=== PATIENT | female | born 1945 | race Hispanic/Latino ===

== ENCOUNTER → 2017-05-19 | Day surgery (SDC) | payer MEDICARE, OTHER ==
[2017-05-18 15:25] LABS: BASOPHILS # (AUTO) 0.1 (0.0-0.1); BASOPHILS % 0.7 % (0.0-1.0); EOSINOPHILS # (AUTO) 0.3 (0.0-0.4); EOSINOPHILS % 3.1 % (0.0-6.0); HEMATOCRIT 37.5 % (34.2-44.1); HEMOGLOBIN 12.5 g/dL (12.0-16.0); LYMPHOCYTES # (AUTO) 2.2 (1.0-3.2); LYMPHOCYTES % 26.1 % (18.0-39.1); MEAN CORPUSCULAR HEMOGLOBIN 32.9 pg (28-32); MEAN CORPUSCULAR HGB CONC 33.3 g/dL (31-35); MEAN CORPUSCULAR VOLUME 98.7 fL (81-99); MONOCYTES # (AUTO) 0.5 (0.2-0.8); MONOCYTES % 6.1 % (4.4-11.3); NEUTROPHILS # (AUTO) 5.3 (2.1-6.9); NEUTROPHILS % 63.5 % (38.7-80.0); PLATELET COUNT 217 x10e3/uL (140-360); RED CELL DISTRIBUTION WIDTH 13.8 % (11.7-14.4)
--- NOTE | 2017-05-18 15:55 | Diagnostic Imaging Report ---
PROCEDURE: Frontal and lateral views of the chest. COMPARISON: None. INDICATIONS: PRE OP FINDINGS: Lines/tubes: None. Lungs: The lungs are well inflated and clear. There is no evidence of pneumonia or pulmonary edema. Pleura: There is no pleural effusion or pneumothorax. Heart and mediastinum: The heart and the mediastinum are normal. Bones: No acute bony abnormality. Degenerative changes in the thoracic spine. IMPRESSION: 1. No acute cardiopulmonary abnormalities. Wilver Fernando M.D. Dictated by: Wilver Fernando M.D. on 05/18/2017 at 16:02 Electronically approved by: Wilver Fernando M.D. on 05/18/2017 at 16:02
[~2017-05-19] MED LIST: ATORVASTATIN CA20 MG PO; BACITRACIN 50,000 UNIT VIAL ONE; BUPIVACAINE 0.5%/EPI 30 ML SDV INJ ONE; CALCIUM CARBON500 MG PO; CEFAZOLIN SOD 1 GM VIAL ONE; CLINDAMYCIN 300MG 50 ML IV ONE; DOCUSATE SODIU100 MG PO; FENTANYL CITRATE/PF 100MCG/2 ML INJ ONE; FISH OIL 1,2001 EACH PO; FLUOXETINE HCL20 MG PO; KETOROLAC TROMETHAMINE 30 MG/ML VIAL ONE; LEVOTHYROXINE100 MC1 PO; LIDOCAINE 2% /EPINEPHRINE 20 ML SDV INJ ONE; LIDOCAINE HCL 2% LOCAL INJ 5 ML SDV VIAL INJ ONE; LISINOPRIL10 MG PO; MIDAZOLAM HCL 2 MG/2 ML VIAL ONE; MYRBETRIQ50 MG PO; NORCO 10-325 T1 EACH PO; PROPOFOL IV EMULSION 10 MG/ML 20 ML VIAL ONE; RISPERIDONE1 MG PO; VITAMIN B-121000 MCG PO; VITAMIN D-32000 UNIT PO
--- NOTE | 2017-07-11 07:54 | Operative Report ---
DATE OF PROCEDURE: May 19, 2017 PREOPERATIVE DIAGNOSES 1. Refractory urge incontinence. 2. Migration of InterStim lead. POSTOPERATIVE DIAGNOSES 1. Refractory urge incontinence. 2. Migration of InterStim lead. OPERATIONS PERFORMED 1. Removal of InterStim lead electrode array from the right foramen S3. 2. Placement of tined quadripolar lead electrodes into the left foramen S3. 3. Revision of right-sided InterStim neurostimulator. 4. Fluoroscopic guidance for needle placement into the foramen S3. 5. Electronic analysis and complex programming. ANESTHESIA: Local anesthesia with intravenous anesthesia and monitored anesthesia care. COMPLICATIONS: None. CLINICAL SUMMARY: Jacqueline Smith is a 71-year-old woman who had an InterStim implant placed for refractory urge incontinence. Initially, the patient did well. The patient however had change in symptomatology and some discomfort from the InterStim and improper sensation. Evaluation revealed that the patient's lead had migrated proximally and was no longer in proper position through the S3 foramen. Patient was brought for revision. She is aware of the risks of bleeding, infection, injury to adjacent structures, need for additional procedures, and elected to proceed. OPERATIVE PROCEDURE IN DETAIL: Informed consent was verified. Jacqueline Smith was properly identified, taken to the operating room, placed on the pain management table in the prone position following uneventful anesthesia. Pillows were placed on the lower abdomen to flatten the sacrum and under the shins to allow the toes to dangle freely. The patient was prepared and draped in usual sterile fashion. C-arm was utilized. Local injection of Marcaine as well as lidocaine with epinephrine was utilized throughout the procedure. An incision was made overlying the right lead. We dissected out the lead. We then carefully and gently removed the right lead from its improper position. The needle was then placed into the left foramen S3 and guided fluoroscopically. The depth was confirmed fluoroscopically and proper needle position was also confirmed with bellowing of the patient's perineum and plantar flexion of the great toe, utilizing the external test stimulator box. The needle stylet was then removed. The directional guidewire was then placed. The foramen needle was then removed and an incision made peripherally to the directional guide. A dilator introducer sheath was then placed over the directional guide and directed into the foramen until the opaque marker of the dilator was seen at the midpoint of the sacrum. The dilator obturator was then unlocked and removed and the lead was then placed through the introducer sheath to the 1st white line. Position was checked fluoroscopically. All 4 leads were then tested. Each electrode was then tested for its similar response to above. After satisfactory position was confirmed under continuous fluoroscopy, the introducer sheath was retracted, thus deploying the lead tines into the perisacral tissue and ensuring that all 4 leads were anterior to the sacrum. We then made further incision overlying the neurostimulator. We then explanted the neurostimulator and disconnected the old lead from the neurostimulator. The pocket was then revised. We used the tunneling tube to bring the new lead to the same pocket. We cleansed the lead thoroughly of bodily fluids with sterile water and dried it thoroughly. We then inserted it into the same pulse generator with the blue lead tip clearly visible in the distal portion of the pulse generator header and thus ensuring alignment of the metal bands. The single set screw was then tightened with a hex wrench. The pulse generator was then placed into the subcutaneous pocket that was revised and the programming head was then placed over the implanted neurostimulator. Impedance was verified to be in appropriate parameters. Copious irrigation was performed of all incisions and all incisions were closed in 2 layers utilizing absorbable sutures. Mastisol and Steri-Strips were applied. Bio-occlusive dressings were also applied. The patient was then uneventfully reversed from anesthesia and taken to recovery room in stable condition. There were no complications to the procedure. The patient tolerated the procedure well. Sponge, needle, and instrument counts were grossly correct times 2 at the end of the case. Estimated blood loss was minimal. Utilizing the clinician program, the patient was programmed to the lead of optimum sensation and given explicit instructions on utilizing the patient computer numerical control programmer prior to discharge. Plans will be to follow the patient up as an outpatient and continue to monitor the patient closely with impedance checks and reprogramming of her implant as needed. Job#: [id number] CF cc:DANNI KIMBLE M.D.
== END | disposition home or self-care (01) ==
LOC: OR 06:39
PROVIDERS: ATTEND Urology
DX: T85.121A Displacement of implanted electronic neurostimulator of peripheral nerve electrode (lead), initial encounter (principal); Y83.8 Other surgical procedures as the cause of abnormal reaction of the patient, or of later complication, without mention of misadventure at the time of the procedure; N39.41 Urge incontinence; M06.9 Rheumatoid arthritis, unspecified; M19.90 Unspecified osteoarthritis, unspecified site; E03.9 Hypothyroidism, unspecified; J45.909 Unspecified asthma, uncomplicated; I10 Essential (primary) hypertension; E78.5 Hyperlipidemia, unspecified; Z01.810 Encounter for preprocedural cardiovascular examination; Z01.812 Encounter for preprocedural laboratory examination; Z01.818 Encounter for other preprocedural examination
CPT/HCPCS: 64581; 64595; 95972; C1778; L8679; 36415; 71020; 76000; 85025; 88300; 93005; J0690; J1885; J2001; J2250

== ENCOUNTER 2017-10-30 10:58 | Inpatient (IN) | payer MEDICARE ==
[2017-10-24 10:53] LABS: BASOPHILS # (AUTO) 0.1 (0.0-0.1); BASOPHILS % 0.8 % (0.0-1.0); EOSINOPHILS # (AUTO) 0.1 (0.0-0.4); EOSINOPHILS % 1.9 % (0.0-6.0); HEMATOCRIT 36.4 % (34.2-44.1); LYMPHOCYTES # (AUTO) 1.7 (1.0-3.2); LYMPHOCYTES % 26.8 % (18.0-39.1); MEAN CORPUSCULAR HEMOGLOBIN 32.2 pg (28-32); MEAN CORPUSCULAR VOLUME 97.6 fL (81-99); MONOCYTES # (AUTO) 0.5 (0.2-0.8); MONOCYTES % 7.2 % (4.4-11.3); NEUTROPHILS # (AUTO) 3.9 (2.1-6.9); NEUTROPHILS % 62.8 % (38.7-80.0); PLATELET COUNT 198 x10e3/uL (140-360); RED BLOOD COUNT 3.73 x10e6/uL (3.6-5.1); RED CELL DISTRIBUTION WIDTH 14.6 % (11.7-14.4)
--- NOTE | 2017-10-24 12:52 | Diagnostic Imaging Report ---
PROCEDURE: X-RAY CHEST, TWO VIEWS COMPARISON: Patients [facility], , CHEST 2 VIEWS, 05/18/2017, 15:19. INDICATIONS: PRE-OPERATION FINDINGS: LUNGS: No consolidations or edema. PLEURA: No effusions or pneumothorax. HEART \T\ MEDIASTINUM: The heart is within normal size-limits. Calcification within the aorta. BONES \T\ SOFT TISSUES: No acute findings. There are degenerative changes of the thoracic spine. CONCLUSION: No acute thoracic abnormality. Carroll Galdamez D.O. Dictated by: Carroll Galdamez D.O. on 10/24/2017 at 12:53 Electronically approved by: Carroll Galdamez D.O. on 10/24/2017 at 12:53
[~2017-10-30 10:58] MED LIST changes: -BACITRACIN 50,000 UNIT VIAL ONE; -BUPIVACAINE 0.5%/EPI 30 ML SDV INJ ONE; -CLINDAMYCIN 300MG 50 ML IV ONE; -FENTANYL CITRATE/PF 100MCG/2 ML INJ ONE; -KETOROLAC TROMETHAMINE 30 MG/ML VIAL ONE; -LIDOCAINE 2% /EPINEPHRINE 20 ML SDV INJ ONE; -LIDOCAINE HCL 2% LOCAL INJ 5 ML SDV VIAL INJ ONE; -MIDAZOLAM HCL 2 MG/2 ML VIAL ONE; -PROPOFOL IV EMULSION 10 MG/ML 20 ML VIAL ONE
--- OUTSIDE RECORDS SUMMARY | 2017-10-30 11:00 | XMS REPORT ---
Author Author [facility] Address Unknown Phone Unavailable Care Team Providers Care Hardware Manager Name Role Phone NAVNEET VILLEDA Unavailable Unavailable Problems This patient has no known problems. Allergies, Adverse Reactions, Alerts This patient has no known allergies or adverse reactions. Medications This patient has no known medications. Results Test Description Test Time Test Comments Text Results Atomic Results Result Comments CHEST 2 VIEWS [place] [address] Patient Name: ELICEO CARRENO MR #: [id number] : 1945 Age/Sex: 72/F Req #: [id number] Adm Physician: Ordered by: JENA MARIN MD Report #: [id number] Location: OR Room/Bed: Procedure: [id number] DX/CHEST 2 VIEWS Exam Date: 10/24/17 Exam Time: 1122 REPORT STATUS: Signed PROCEDURE: X-RAY CHEST, TWO VIEWS COMPARISON: [facility], DX, CHEST 2 VIEWS, 05/18/2017, 15:19. INDICATIONS: PRE-OPERATION FINDINGS: LUNGS: No consolidations or edema. PLEURA: No effusions or pneumothorax. HEART T MEDIASTINUM: The heart is within normal size-limits. Calcification within the aorta. BONES T SOFT TISSUES: No acute findings. There are degenerative changes of the thoracic spine. CONCLUSION: No acute thoracic abnormality. Ghassan Galdamez D.O. Dictated by: Ghassan Galdamez D.O. on 10/24/2017 at 12:53 Electronically approved by: Ghassan Galdamez D.O. on 10/24/2017 at 12:53 Dictated By: GHASSAN GALDAMEZ DO 1253 Transcribed By: JUDE on 10/24/17 1253 COPY TO: JENA MARIN MD CHEST 2 VIEWS [place] [address] Patient Name: ELICEO CARRENO MR #: [id number] : 1945 Age/Sex: 71/F Req #: [id number] Adm Physician: Ordered by: SAIRA GOLDBERG MD Report #: [id number] Location: OR Room/Bed: Procedure: [id number] DX/CHEST 2 VIEWS Exam Date: 05/18/17 Exam Time: 1535 REPORT STATUS: Signed PROCEDURE: Frontal and lateral views of the chest. COMPARISON: None. INDICATIONS: PRE OP FINDINGS: Lines/tubes: None. Lungs: The lungs are well inflated and clear. There is no evidence of pneumonia or pulmonary edema. Pleura: There is no pleural effusion or pneumothorax. Heart and mediastinum: The heart and the mediastinum are normal. Bones: No acute bony abnormality. Degenerative changes in the thoracic spine. IMPRESSION: 1. No acute cardiopulmonary abnormalities. Raymundo Fernando M.D. Dictated by: Raymundo Fernando M.D. on 05/18/2017 at 16:02 Electronically approved by: Raymundo Fernando M.D. on 05/18/2017 at 16:02 Dictated By: RAYMUNDO FERNANDO MD 01 Transcribed By: JUDE on 05/18/171601 COPY TO: SAIRA GOLDBERG MD SACRUM X-RAY [place] [address] Patient Name: ELICEO CARRENO MR #: [id number] : 1945 Age/Sex: 71/F Req #: [id number] Adm Physician: Ordered by: NAVNEET VILLEDA MD Report #: [id number] Location: [facility] Room/Bed: Procedure: [id number] DX/SACRUM X-RAY Exam Date: 03/30/17 Exam Time: 1430 REPORT STATUS: Signed PROCEDURE: SACRUM X-RAY INDICATION: Female genital prolapse COMPARISON: None. FINDINGS: The bones are osteopenic. The sacral body is obscured by rectal gas and stool on the frontal radiograph. No displaced fracture or destructive lesion. Degenerative changes of the sacroiliac joints. Sacral stimulator device body lies within the subcutaneous fat of the right gluteal region. Lead projects just posteriorly to the right sacral ala. Multiple pelvic phleboliths. Tubal ligation devices. CONCLUSION: No acute osseous abnormality. Dictated by: Geo Smith M.D. on 03/31/2017 at 7:40 Electronically approved by: Geo Smith M.D. on 03/31/2017 at 7:40 Dictated By: GEO SMITH MD 9 Transcribed By: JUDE on 03/31/17739 COPY TO: NAVNEET VILLEDA MD
[2017-10-30] MEDS ORDERED: BACITRACIN 50,000 UNIT VIAL ONE (12:33)
[2017-10-30] MEDS ORDERED: BUPIVACAINE HCL 0.5% INJ 30 ML VIAL INJ ONE (12:33)
[2017-10-30] MEDS ORDERED: IOPAMIDOL 610MG/1ML 300 MG/ML VIAL IV ONE (12:52)
[2017-10-30] MEDS ORDERED: D5.45%NS/KCL 20MEQ 1,000 ML IV SCH (15:39)
[2017-10-30] MEDS ORDERED: NALOXONE HCL INJ 0.4 MG/ML AMP IV PRN (15:45)
[2017-10-30] MEDS ORDERED: MORPHINE SULFATE 1 MG/ML 30ML PCA IV PRN (15:45)
[2017-10-30] MEDS ORDERED: ONDANSETRON HCL INJ 2 MG/ML VIAL IV PRN (15:45)
[2017-10-30] MEDS: SODIUM CHLORIDE 0.9% 250ML IRRIG IR SCH ×3 (15:45→21:23)
[2017-10-30] MEDS ORDERED: ACETAMINOPHEN 1000 MG/100 ML IV PRN (15:45)
[2017-10-30] MEDS ORDERED: DIPHENHYDRAMINE HCL INJ 50 MG/ML VIAL IM PRN (15:45)
--- NOTE | 2017-10-30 16:17 | Diagnostic Imaging Report ---
PROCEDURE:X-RAY ABDOMEN - KUB COMPARISON:None. INDICATIONS:NG TUBE PLACEMENT FINDINGS: 2 KUBs were obtained following insertion of an NG tube. NG tube is present, with distal tip at the esophagogastric junction (second film following advancement). Recommend advancing additional 3-5 cm. There are no dilated loops of bowel to suggest obstruction. There are no masses or abnormal calcifications. There is no evidence of free air. No acute osseous abnormalities are present. Neurostimulator/Interstim projected on the left hemipelvis. CONCLUSION: NG tube with distal tip at the esophagogastric junction (second film following advancement). Recommend advancing additional 3-5 cm. Alicja Maza M.D. Dictated by: Alicja Maza M.D. on 10/30/2017 at 16:19 Electronically approved by: Alicja Maza M.D. on 10/30/2017 at 16:19
[2017-10-30] MEDS ORDERED: FENTANYL CITRATE/PF 100MCG/2 ML INJ ONE ×2 (16:25→17:48)
[2017-10-30] MEDS ORDERED: MORPHINE SULFATE 1 MG/ML 30ML PCA ONE (16:33)
[2017-10-30] MEDS ORDERED: MORPHINE SULFATE 2 MG/ML SYR ONE (16:42)
[2017-10-30] MEDS: DOCUSATE SODIUM 100 MG CAP PO SCH (17:00)
[2017-10-30] MEDS ORDERED: DEXAMETHASONE SOD PHOS INJ 4 MG/ML VIAL ONE (17:32)
[2017-10-30] MEDS ORDERED: PROPOFOL IV EMULSION 10 MG/ML 20 ML VIAL ONE (17:32)
[2017-10-30] MEDS ORDERED: ONDANSETRON HCL INJ 2 MG/ML VIAL ONE (17:32)
[2017-10-30] MEDS ORDERED: NEOSTIGMINE 5 MG/5ML SYR ONE (17:32)
[2017-10-30] MEDS ORDERED: LIDOCAINE HCL 2% LOCAL INJ 5 ML SDV VIAL INJ ONE (17:32)
[2017-10-30] MEDS ORDERED: SEVOFLURANE INHAL SOLN 250 ML PEN BTL ONE (17:32)
[2017-10-30] MEDS ORDERED: GLYCOPYRROLATE INJ 1MG/ 5 ML SYR ONE (17:32)
[2017-10-30] MEDS ORDERED: ROCURONIUM BROMIDE 10 MG/ML 5ML VIAL ONE (17:32)
--- NOTE | 2017-10-30 17:38 | Operative Report ---
DATE OF PROCEDURE: October 30, 2017 PREOPERATIVE DIAGNOSIS 1. Severe vaginal vault grade 4 prolapse. 2. Stress-type urinary incontinence. POSTOPERATIVE DIAGNOSIS 1. Severe vaginal vault grade 4 prolapse. 2. Stress-type urinary incontinence. 3. Bilateral hydronephrosis, worse on the right side. OPERATION PERFORMED 1. Cystourethroscopy with bilateral ureteral catheterization and retrograde ureteropyelography (separate procedure performed to evaluate the upper tracts the extent of the hydronephrosis. 2. Interpretation of retrograde ureteropyelography. 3. Supervision of fluoroscopy, no radiologist present. 4. Sacral colpopexy with polypropylene mesh (separate procedure performed for the severe prolapse). 5. Guallpa colposuspension (separate procedure performed for the stress incontinence). PUPPET DEVELOPER: Dr. Komal Tavares. ANESTHESIA: General. COMPLICATIONS: None. CLINICAL SUMMARY: Jacqueline Smith is a 72-year-old woman with both stress and urge-type urinary incontinence. Her urgent-type incontinence has been managed and improved with an InterStim implant. The patient's prolapse is extremely severe, but she does have a stress component to her incontinence. Options were discussed with the patient, and she elected to proceed with surgery today as planned. She understands the risks of bleeding, infection, injury to adjacent structures, possible need for additional reconstruction. She also understands that her case of prolapse is as severe as potentially possible and distortion of anatomy can result in other issues. She understood all these risks and elected to proceed. OPERATIVE PROCEDURE IN DETAIL: Informed consent was verified. Jacqueline Smith was properly identified, taken to the operating room, placed on the operating table in the supine position, and anesthesia was uneventfully begun. The patient was then carefully and gently repositioned in the dorsal lithotomy position with all pressure points well padded. Her abdomen and genitalia were shaved, prepared and draped in the usual sterile fashion. The 22.5-Tongan cystourethroscope sheath with the obturator in place was atraumatically inserted into the patient's urethra, and the bladder was drained. A probe was placed into the vagina and held in place to keep the vaginal vault cephalad in order to be able to negotiate the anatomy of the bladder interior. There were no suspicious lesions. Grade 2 trabeculations were noted. No tumors and no diverticula were noted. Normally positioned and configured ureteral orifices were identified. A hydrophilic angle-tipped guide wire was utilized to help negotiate two 5-Tongan open-ended ureteral catheters into the patient's ureters. Contrast was then injected bilaterally in performing retrograde ureteropyelography. A Bhakta catheter was inserted. The ureteral catheters were incorporated into the drainage system with a specialized adapter, and then the patient was repositioned in a frog-leg position for this the abdominal portion of the case. Interpretation of retrograde ureteropyelography: Contrast was instilled in a retrograde fashion bilaterally. There was severe J-hooking bilaterally. There was bilateral hydroureteronephrosis, worse on the right-hand side. The ureteral catheters were left in a good position. The patient was then reprepared and draped in the usual sterile fashion. A midline infraumbilical incision was then made and carried through all layers of the abdominal wall until we reached the extravesical space. The space of Retzius was developed. We then entered the peritoneum. We utilized a Bae Alfonzo self-retaining retractor. An incision was made at the posterior peritoneum right over the sacral promontory. The sacral promontory was identified, and 2 heavy Ethibond sutures were placed through the periosteum of the sacrum at the level of the sacral promontory. We then utilized a ring forceps in the vagina to identify the apex of the vagina and which we presumed was the vaginal cuff as well. We then isolated the anterior and posterior vaginal wall. We dissected the bladder free from the cephalad portion of the of the anterior vaginal wall. We then utilized 2 strips of polypropylene . One strip was secured with numerous Vicryl sutures to the posterior surface of the cephalad vaginal wall, and the other piece of mesh was secured to the anterior vaginal wall. These pieces of mesh were secured to the vaginal vault with a total of 9 heavy Vicryl sutures. We then secured the other end of both pieces of mesh to the sacral promontory with the previously placed Ethibond sutures. Care was taken to ensure that this mesh was without any tension in order to avoid postoperative discomfort. Thus the sacral colpopexy was utilized to prevent the vagina from prolapsing without actually lifting the vagina. Copious irrigation was performed. We verified hemostasis. The posterior peritoneum was then reapproximated with 3-0 chromic suture, and the mesh was fully retroperitonealized. Attention was then given to the space of Retzius. Utilizing the ring forceps in the vagina as well as through palpation, 4 heavy Vicryl sutures were placed for a Guallpa colposuspension. These sutures were placed lateral to the ureterovesical junction on either side, and then 1 suture was placed distal to the original suture on each side. We approximated these sutures to their respective position on Bronson's ligament. There was bleeding at the level of the space of Retzius from paravaginal veins. This bleeding was oversewn with Vicryl suture with complete hemostasis achieved. The 4 sutures were then tied down, thus completing the Guallpa colposuspension. Copious irrigation was performed. We verified hemostasis. A piece of Surgicel was left in place just for any recurrence of oozing, even though there was no oozing at this point. The wound was again irrigated. The 2 laps that were placed intraperitoneally were removed. We could not easily reach the stomach in order to palpate for NG tube positioning due to the fact that there were adhesions throughout the abdomen and we could not gain easy access to the region of the stomach. The rectus muscles were approximated loosely with interrupted Vicryl suture, and the fascia was approximated with heavy Vicryl suture in interrupted figure-of-8 fashion. Skin bartolome were applied. The ureteral catheters were removed. The dressings were applied. The patient was then uneventfully reversed from anesthesia and taken to the recovery room in stable condition. There were no complications to the procedure. Patient tolerated the procedure well. Sponge, needle and instrument counts were reported as correct x2 at the end of the case. Estimated blood loss was 250 mL. We will plan on routine postoperative care and we will, of course, monitor the patient's laboratory studies during her hospitalization. Job#: [id number] cc:DANNI KIMBLE M.D.
[2017-10-30] MEDS ORDERED: MIDAZOLAM HCL 2 MG/2 ML VIAL ONE (17:48)
[2017-10-30 20:00] VITALS: BP 117/56
[2017-10-30] MEDS ORDERED: CEFAZOLIN SOD 1 GM/NS 50ML 50 ML IV SCH (22:00)
[2017-10-30] MEDS: CEFAZOLIN SOD 1 GM VIAL IV SCH (23:05)
[2017-10-31] VITALS (8 sets, daily range): BP systolic 82–125; BP diastolic 41–58
[2017-10-31] MEDS: SODIUM CHLORIDE 0.9% 250ML IRRIG IR SCH ×5 (00:01→15:45)
[2017-10-31] MEDS: CEFAZOLIN SOD 1 GM VIAL IV SCH ×2 (06:22→14:00)
[2017-10-31 06:41] LABS: BASOPHILS % 0.2 % (0.0-1.0); HEMOGLOBIN 9.1 g/dL (12.0-16.0); LYMPHOCYTES % 8.6 % (18.0-39.1); MEAN CORPUSCULAR HGB CONC 32.5 g/dL (31-35); MEAN CORPUSCULAR VOLUME 98.6 fL (81-99); MONOCYTES # (AUTO) 1.1 (0.2-0.8); MONOCYTES % 9.6 % (4.4-11.3); NEUTROPHILS # (AUTO) 9.4 (2.1-6.9); NEUTROPHILS % 81.1 % (38.7-80.0); PLATELET COUNT 194 x10e3/uL (140-360); RED BLOOD COUNT 2.84 x10e6/uL (3.6-5.1); RED CELL DISTRIBUTION WIDTH 14.5 % (11.7-14.4)
[2017-10-31 07:08] LABS: ANION GAP 10.2 mmol/L (8-16); CALCIUM 8.4 mg/dL (8.4-10.2); CREATININE, SERUM 1.33 mg/dL (0.57-1.11); POTASSIUM 5.2 mmol/L (3.5-5.1)
[2017-10-31] MEDS: DOCUSATE SODIUM 100 MG CAP PO SCH ×2 (09:00→17:00)
[2017-10-31] MEDS: PANTOPRAZOLE 40 MG 10ML VIAL IV SCH (10:30)
[2017-10-31] MEDS: LEVOTHYROXINE SODIUM 100 MCG/VIAL IV SCH (10:30)
[2017-10-31] MEDS: SODIUM CHLORIDE 0.9% 1000ML 1,000 ML IV SCH (17:48)
[2017-11-01 00:31] VITALS: BP 110/55
[2017-11-01] MEDS: CEFAZOLIN SOD 1 GM VIAL IV SCH ×4 (00:47→21:32)
[2017-11-01] MEDS: SODIUM CHLORIDE 0.9% 1000ML 1,000 ML IV SCH ×4 (00:52→21:33)
[2017-11-01 05:00] VITALS: BP 111/52
[2017-11-01 06:42] LABS: BASOPHILS % 0.3 % (0.0-1.0); EOSINOPHILS # (AUTO) 0.1 (0.0-0.4); EOSINOPHILS % 0.9 % (0.0-6.0); HEMATOCRIT 28.4 % (34.2-44.1); HEMOGLOBIN 9.4 g/dL (12.0-16.0); LYMPHOCYTES % 8.7 % (18.0-39.1); MEAN CORPUSCULAR HEMOGLOBIN 33.2 pg (28-32); MEAN CORPUSCULAR HGB CONC 33.1 g/dL (31-35); MEAN CORPUSCULAR VOLUME 100.4 fL (81-99); MONOCYTES # (AUTO) 1.1 (0.2-0.8); MONOCYTES % 9.7 % (4.4-11.3); NEUTROPHILS # (AUTO) 9.3 (2.1-6.9); PLATELET COUNT 146 x10e3/uL (140-360); RED BLOOD COUNT 2.83 x10e6/uL (3.6-5.1)
[2017-11-01 07:05] LABS: ANION GAP 11.3 mmol/L (8-16); BLOOD UREA NITROGEN 16 mg/dL (7-26); BUN/CREATININE RATIO 18 (6-25); CALCIUM 8.4 mg/dL (8.4-10.2); CARBON DIOXIDE 24 mmol/L (22-29); CHLORIDE 106 mmol/L (98-107); CREATININE, SERUM 0.89 mg/dL (0.57-1.11); EST GLOMERULAR FILTRATION RATE > 60 ML/MIN (60-); GLUCOSE 108 mg/dL (74-118); POTASSIUM 4.3 mmol/L (3.5-5.1); SODIUM 137 mmol/L (136-145)
[2017-11-01 08:00] VITALS: BP 108/47
[2017-11-01] MEDS: DOCUSATE SODIUM 100 MG CAP PO SCH ×2 (08:31→17:12)
[2017-11-01] MEDS: PANTOPRAZOLE 40 MG 10ML VIAL IV SCH (08:31)
[2017-11-01] MEDS: LEVOTHYROXINE SODIUM 100 MCG/VIAL IV SCH (08:31)
[2017-11-01] MEDS ORDERED: HYDROCODONE/APAP 10MG-325MG TAB PO PRN (09:45)
[2017-11-01 12:00] VITALS: BP 97/56
[2017-11-01] MEDS ORDERED: ONDANSETRON HCL 4 MG ORAL DISINTEGRATING TAB SL PRN (15:30)
[2017-11-01 16:00] VITALS: BP 99/38
[2017-11-01] MEDS: SENNOSIDES 8.6 MG TAB PO SCH (17:12)
[2017-11-01 20:22] VITALS: BP 106/50
[2017-11-02] VITALS: BP 120/60
[2017-11-02 04:00] VITALS: BP 134/64
[2017-11-02] MEDS ORDERED: LEVOTHYROXINE SODIUM 50 MCG TAB PO SCH (06:00)
[2017-11-02] MEDS: CEFAZOLIN SOD 1 GM VIAL IV SCH ×3 (06:25→22:42)
[2017-11-02 06:52] LABS: BASOPHILS % 0.2 % (0.0-1.0); EOSINOPHILS # (AUTO) 0.2 (0.0-0.4); EOSINOPHILS % 2.2 % (0.0-6.0); HEMATOCRIT 26.9 % (34.2-44.1); HEMOGLOBIN 8.5 g/dL (12.0-16.0); LYMPHOCYTES # (AUTO) 0.9 (1.0-3.2); LYMPHOCYTES % 9.5 % (18.0-39.1); MEAN CORPUSCULAR HEMOGLOBIN 31.8 pg (28-32); MEAN CORPUSCULAR HGB CONC 31.6 g/dL (31-35); MEAN CORPUSCULAR VOLUME 100.7 fL (81-99); MONOCYTES # (AUTO) 0.7 (0.2-0.8); MONOCYTES % 7.1 % (4.4-11.3); NEUTROPHILS # (AUTO) 7.6 (2.1-6.9); NEUTROPHILS % 80.6 % (38.7-80.0); PLATELET COUNT 144 x10e3/uL (140-360); RED BLOOD COUNT 2.67 x10e6/uL (3.6-5.1); RED CELL DISTRIBUTION WIDTH 14.6 % (11.7-14.4)
[2017-11-02 07:05] LABS: ANION GAP 11.2 mmol/L (8-16); BLOOD UREA NITROGEN 11 mg/dL (7-26); BUN/CREATININE RATIO 16 (6-25); CALCIUM 8.5 mg/dL (8.4-10.2); CARBON DIOXIDE 23 mmol/L (22-29); CHLORIDE 109 mmol/L (98-107); CREATININE, SERUM 0.67 mg/dL (0.57-1.11); EST GLOMERULAR FILTRATION RATE > 60 ML/MIN (60-); GLUCOSE 94 mg/dL (74-118); POTASSIUM 4.2 mmol/L (3.5-5.1); SODIUM 139 mmol/L (136-145)
[2017-11-02 07:44] VITALS: BP 132/61
[2017-11-02 08:00] VITALS: BP 132/61
[2017-11-02] MEDS: DOCUSATE SODIUM 100 MG CAP PO SCH ×2 (08:00→17:00)
[2017-11-02] MEDS: SENNOSIDES 8.6 MG TAB PO SCH ×2 (08:00→17:00)
[2017-11-02] MEDS: PANTOPRAZOLE 40 MG 10ML VIAL IV SCH (08:00)
[2017-11-02] MEDS: ACETAMINOPHEN/CODEINE 300MG - 30MG TAB PO PRN ×3 (08:00→22:42)
[2017-11-02] MEDS ORDERED: CHOLECALCIFEROL PO SCH (09:00)
[2017-11-02] MEDS ORDERED: NON-FORMULARY MEDICATION (Fish Oil/Dha/Epa (Fish Oil 1,200 Mg Fish Oil) 1,200 MG) PO SCH (09:00)
[2017-11-02] MEDS ORDERED: LISINOPRIL 10 MG TAB PO SCH (09:00)
[2017-11-02] MEDS: FLUOXETINE HCL 20 MG CAP PO SCH (10:30)
[2017-11-02] MEDS: CHOLECALCIFEROL 1,000 UNIT TAB PO SCH (10:30)
[2017-11-02] MEDS: LISINOPRIL 20 MG TAB PO SCH (10:30)
[2017-11-02] MEDS: RISPERIDONE 1 MG TAB PO SCH (10:30)
[2017-11-02] MEDS: OMEGA 3 POLYUNSAT FATTY ACIDS 1000 MG SOFTGEL PO SCH (10:30)
[2017-11-02] MEDS: LEVOTHYROXINE SODIUM 100 MCG TAB PO SCH (10:30)
[2017-11-02 13:34] VITALS: BP 124/56
[2017-11-02 20:00] VITALS: BP 100/49
[2017-11-02] MEDS ORDERED: ATORVASTATIN 40 MG TAB PO SCH (21:00)
[2017-11-02] MEDS ORDERED: ATORVASTATIN 20 MG TAB PO SCH (21:00)
[2017-11-03] VITALS: BP_SYST 124; BP_DIAS 56; BP_DIAS 58
[2017-11-03 04:00] VITALS: BP 121/57
[2017-11-03 06:18] LABS: BASOPHILS % 0.3 % (0.0-1.0); EOSINOPHILS # (AUTO) 0.3 (0.0-0.4); EOSINOPHILS % 3.1 % (0.0-6.0); HEMATOCRIT 28.1 % (34.2-44.1); HEMOGLOBIN 9.1 g/dL (12.0-16.0); LYMPHOCYTES # (AUTO) 1.3 (1.0-3.2); LYMPHOCYTES % 13.8 % (18.0-39.1); MEAN CORPUSCULAR HGB CONC 32.4 g/dL (31-35); MEAN CORPUSCULAR VOLUME 98.9 fL (81-99); MONOCYTES # (AUTO) 0.7 (0.2-0.8); MONOCYTES % 7.5 % (4.4-11.3); NEUTROPHILS # (AUTO) 7.2 (2.1-6.9); NEUTROPHILS % 74.8 % (38.7-80.0); PLATELET COUNT 182 x10e3/uL (140-360); RED BLOOD COUNT 2.84 x10e6/uL (3.6-5.1); RED CELL DISTRIBUTION WIDTH 14.6 % (11.7-14.4)
[2017-11-03] MEDS: LEVOTHYROXINE SODIUM 100 MCG TAB PO SCH (06:26)
[2017-11-03] MEDS: CEFAZOLIN SOD 1 GM VIAL IV SCH (06:26)
[2017-11-03] MEDS: ACETAMINOPHEN/CODEINE 300MG - 30MG TAB PO PRN (06:27)
[2017-11-03 06:36] LABS: BLOOD UREA NITROGEN 10 mg/dL (7-26); BUN/CREATININE RATIO 14 (6-25); CALCIUM 9.2 mg/dL (8.4-10.2); CARBON DIOXIDE 28 mmol/L (22-29); CHLORIDE 108 mmol/L (98-107); CREATININE, SERUM 0.69 mg/dL (0.57-1.11); EST GLOMERULAR FILTRATION RATE > 60 ML/MIN (60-); GLUCOSE 115 mg/dL (74-118); SODIUM 140 mmol/L (136-145)
[2017-11-03 08:33] VITALS: BP 145/65
[2017-11-03] MEDS: DOCUSATE SODIUM 100 MG CAP PO SCH (08:46)
[2017-11-03] MEDS: OMEGA 3 POLYUNSAT FATTY ACIDS 1000 MG SOFTGEL PO SCH (08:46)
[2017-11-03] MEDS: SENNOSIDES 8.6 MG TAB PO SCH (08:46)
[2017-11-03] MEDS: LISINOPRIL 20 MG TAB PO SCH (08:46)
[2017-11-03] MEDS: RISPERIDONE 1 MG TAB PO SCH (08:46)
[2017-11-03] MEDS: CHOLECALCIFEROL 1,000 UNIT TAB PO SCH (08:46)
[2017-11-03] MEDS: FLUOXETINE HCL 20 MG CAP PO SCH (08:46)
[2017-11-03 08:48] VITALS: BP 145/65
--- NOTE | 2017-11-03 10:44 | Discharge Summary ---
PRIMARY CARE PHYSICIAN: Dr. Ibeth Nunn HIGH VALUE ASSOCIATE: Dr. Trell Tavares FINAL DIAGNOSES 1. Status post sacral colpopexy with mesh repair. 2. Urinary incontinence urgency, improved. 3. Baseline hypertension. 4. Hypokalemia, resolved. SUMMARY: A 72-year-old female who has multiple chronic baseline medical problems. The patient has a history of urinary bladder prolapse. The patient also had some urinary incontinence. She is now status post sacral colpopexy. Procedure was done by Dr. Trell Tavares. Postoperatively, the patient was stable. She continued to improve. Now, she is ambulatory. She is able to tolerate all her diet. No sign of any complication. The patient will go home with Tylenol No. 3 as needed for pain and Colace 1 mg twice a day to prevent constipation. She will resume home medications. She will follow with Dr. Trell Tavares as per his instructions. Job#: [id number] MADONNA
[2017-11-03] MEDS ORDERED: COLACE100 MG PO (11:46)
[2017-11-03] MEDS ORDERED: TYLENOL WITH C1 EACH PO (11:46)
[2017-11-03 12:32] VITALS: BP 107/53
== END 2017-11-03 13:55 | disposition home or self-care (01) | DRG 748 ==
LOC: OR 10:58 → MED/SURG2 20:47 → MED/SURG 11-01 22:51
PROVIDERS: ADMIT Internal Medicine; ATTEND Internal Medicine
PROC: 0USG0ZZ Reposition Vagina, Open Approach (ICD-10-PCS; 2017-10-30)
PROC: 0TSC0ZZ Reposition Bladder Neck, Open Approach (ICD-10-PCS; 2017-10-30)
PROC: 0T788DZ Dilation of Bilateral Ureters with Intraluminal Device, Via Natural or Artificial Opening Endoscopic (ICD-10-PCS; 2017-10-30)
PROC: BT141ZZ Fluoroscopy of Kidneys, Ureters and Bladder using Low Osmolar Contrast (ICD-10-PCS; 2017-10-30)
PROC: 0JUC0JZ Supplement of Pelvic Region Subcutaneous Tissue and Fascia with Synthetic Substitute, Open Approach (ICD-10-PCS; principal; 2017-10-30 13:00)
CPT/HCPCS: 36415; 71046; 74018; 74420; 80048; 82948; 83735; 84443; 85025; 93005; C1781; J0690; J1100; J2001; J2250; J2270; J2405; J7030

== ENCOUNTER → 2019-03-05 | Day surgery (SDC) | payer MEDICARE, OTHER ==
[2019-02-28 11:43] LABS: BASOPHILS % 0.4 % (0.0-1.0); EOSINOPHILS # (AUTO) 0.1 (0.0-0.4); EOSINOPHILS % 1.8 % (0.0-6.0); HEMATOCRIT 34.5 % (34.2-44.1); HEMOGLOBIN 10.9 g/dL (12.0-16.0); LYMPHOCYTES # (AUTO) 1.6 (1.0-3.2); LYMPHOCYTES % 21.6 % (18.0-39.1); MEAN CORPUSCULAR HEMOGLOBIN 32.1 pg (28-32); MEAN CORPUSCULAR HGB CONC 31.6 g/dL (31-35); MEAN CORPUSCULAR VOLUME 101.5 fL (81-99); MONOCYTES # (AUTO) 0.3 (0.2-0.8); MONOCYTES % 4.6 % (4.4-11.3); NEUTROPHILS # (AUTO) 5.2 (2.1-6.9); NEUTROPHILS % 71.1 % (38.7-80.0); PLATELET COUNT 217 x10e3/uL (140-360); RED CELL DISTRIBUTION WIDTH 15.2 % (11.7-14.4)
[2019-02-28 12:04] LABS: ANION GAP 12.1 mmol/L (8-16); CALCIUM 10.2 mg/dL (8.4-10.2); CREATININE, SERUM 0.95 mg/dL (0.57-1.11); POTASSIUM 5.1 mmol/L (3.5-5.1)
--- NOTE | 2019-02-28 12:08 | Diagnostic Imaging Report ---
Exam: Chest radiograph Clinical History: Preoperative clearance Findings: The cardiomediastinal silhouette and lungs are normal. The regional skeleton and soft tissue are unremarkable. There is no evidence of pleural effusion or pneumothorax. Impression: No radiographic evidence of acute cardiopulmonary disease. Signed by: Dr. Renzo Monterroso MD on 02/28/2019 12:04 PM
[~2019-03-05] MED LIST changes: +ALLOPURINOL300 MG PO; +BUPIVACAINE 0.5%/EPI 30 ML SDV INJ ONE; -CEFAZOLIN SOD 1 GM VIAL ONE; +CEFTRIAXONE SOD 1 GM/NS 50 ML 50 ML IV ONE; +CLINDAMYCIN 600MG / 50ML 50 ML IV ONE; +COLACE100 MG PO; +DEXAMETHASONE SOD PHOS INJ 4 MG/ML VIAL ONE; +EPHEDRINE SULFATE INJ 50 MG/10 ML SYR ONE; +FENTANYL CITRATE/PF 100MCG/2 ML INJ ONE; +FLUOXETINE HCL20 M1 PO; +FUROSEMIDE40 MG PO; +GLYCOPYRROLATE INJ 1MG/ 5 ML SYR ONE; +LASIX20 MG PO; +LIDOCAINE 2%/ EPINEPHRINE 20ML MDV ONE; +LIDOCAINE HCL 2% LOCAL INJ 5 ML SDV VIAL INJ ONE; +ONDANSETRON HCL INJ 2MG/ML 2ML 2 MG/ML VIAL ONE; +PHENYLEPHRINE HCL 1% 10 MG/ML VIAL ONE; +PROPOFOL IV EMULSION 10 MG/ML 20 ML VIAL ONE; +SEVOFLURANE INHAL SOLN 250 ML PEN BTL ONE; +SUCCINYLCHOLINE 200 MG/10 ML SYR ONE; +TYLENOL WITH C1 EACH PO; +vitamin B12 PO
--- OUTSIDE RECORDS SUMMARY | 2019-03-05 05:14 | XMS REPORT | Continuity of Care Document ---
Author Author [employer] Address Unknown Phone Unavailable Care Team Providers Care Control Systems Developer Name Role Phone [employer] Information Exchange Unavailable Unavailable Problems No Data Provided for This Section Medications Medication Details Route Status Patient Instructions Ordering Provider Order Date Source Calcium Carbonate 500 Mg Tablet, 600 Mg Oral Daily Active 10/30/2017 [facility] Cyanocobalamin (Vitamin B-12) 1,000 Mcg Tab, 1000 Mcg Oral Daily Active 10/24/2017 [facility] Docusate Sodium 100 Mg Capsule, 100 Mg Oral Daily Active 10/24/2017 [facility] Hydrocodone Bit/Acetaminophen ([place] 10-325 Tablet) 1 Each Tablet, 1 Tab Oral Daily Active 10/24/2017 [facility] Mirabegron (Myrbetriq) 50 Mg Tab.er.24h, 50 Mg Oral Daily Active 10/24/2017 [facility] Acetaminophen With Codeine (Tylenol With Codeine #3 Tablet) 1 Each Tablet As Needed as needed for Pain Active [facility] Atorvastatin Calcium 20 Mg Tablet Bedtime Active [facility] Cholecalciferol (Vitamin D3) (Vitamin D-3) 2,000 Unit Capsule Daily Active [facility] Docusate Sodium (Colace) 100 Mg Cap Twice A Day Active [facility] Fish Oil/Dha/Epa (Fish Oil 1,200 Mg Fish Oil) 1 Each Capsule Daily Active [facility] Fluoxetine Hcl 20 Mg Capsule Daily Active [facility] Levothyroxine Sodium 100 Mcg Vial Daily Active [facility] Lisinopril 10 Mg Tablet Daily Active [facility] Risperidone 1 Mg Tablet Daily Active [facility] Allergies, Adverse Reactions, Alerts Substance Category Reaction Severity Reaction type Status Date Reported Comments Source Aspirin Unknown Allergy to Substance Active 11/02/2017 [facility] Immunizations No Data Provided for This Section Results Order Name Results Value Reference Range Date Interpretation Comments Source Automated blood basophil count (count/volume) Automated blood basophil count (count/volume) 0.0 0.0 - 0.1 11/03/2017 [facility] Automated blood basophil count as percentage of total leukocytes Automated blood basophil count as percentage of total leukocytes 0.3 0.0 - 1.0 11/03/2017 [facility] Automated blood eosinophil count Automated blood eosinophil count 0.3 0.0 - 0.4 11/03/2017 [facility] Automated blood eosinophil count as percentage of total leukocytes Automated blood eosinophil count as percentage of total leukocytes 3.1 0.0 - 6.0 11/03/2017 [facility] Automated blood hematocrit (volume fraction) Automated blood hematocrit (volume fraction) 28.1 34.2 - 44.1 11/03/2017 [facility] Automated blood lymphocyte count as percentage ot total leukocytes Automated blood lymphocyte count as percentage ot total leukocytes 13.8 18.0 - 39.1 11/03/2017 [facility] Automated blood monocyte count as percentage of total leukocytes Automated blood monocyte count as percentage of total leukocytes 7.5 4.4 - 11.3 11/03/2017 [facility] Automated blood neutrophil count Automated blood neutrophil count 7.2 2.1 - 6.9 11/03/2017 [facility] Automated blood platelet count (count/volume) Automated blood platelet count (count/volume) 182 140 - 360 11/03/2017 [facility] Automated blood segmented neutrophil count as percentage of total leukocytes Automated blood segmented neutrophil count as percentage of total leukocytes 74.8 38.7 - 80.0 11/03/2017 [facility] Automated erythrocyte mean corpuscular hemoglobin (mass per erythrocyte) Automated erythrocyte mean corpuscular hemoglobin (mass per erythrocyte) 32.0 28 - 32 11/03/2017 [facility] Automated erythrocyte mean corpuscular hemoglobin concentration measurement (mass/volume) Automated erythrocyte mean corpuscular hemoglobin concentration measurement (mass/volume) 32.4 31 - 35 11/03/2017 [facility] Automated erythrocyte mean corpuscular volume Automated erythrocyte mean corpuscular volume 98.9 81 - 99 11/03/2017 [facility] Blood erythrocytes automated count (number/volume) Blood erythrocytes automated count (number/volume) 2.84 3.6 - 5.1 11/03/2017 [facility] Blood hemoglobin measurement (moles/volume) Blood hemoglobin measurement (moles/volume) 9.1 12.0 - 16.0 11/03/2017 [facility] Blood leukocytes automated count (number/volume) Blood leukocytes automated count (number/volume) 9.65 4.8 - 10.8 11/03/2017 [facility] Blood lymphocytes count (number/volume) Blood lymphocytes count (number/volume) 1.3 1.0 - 3.2 11/03/2017 [facility] Blood monocytes automated count (number/volume) Blood monocytes automated count (number/volume) 0.7 0.2 - 0.8 11/03/2017 [facility] Estimated glomerular filtration rate (GFR) determination Estimated glomerular filtration rate (GFR) determination >60 60 11/03/2017 [facility] Glucose measurement Glucose measurement 115 74 - 118 11/03/2017 [facility] Serum or plasma anion gap Serum or plasma anion gap 8.0 8 - 16 11/03/2017 [facility] Serum or plasma calcium measurement (mass/volume) Serum or plasma calcium measurement (mass/volume) 9.2 8.4 - 10.2 11/03/2017 [facility] Serum or plasma carbon dioxide, total measurement (moles/volume) Serum or plasma carbon dioxide, total measurement (moles/volume) 28 22 - 29 11/03/2017 [facility] Serum or plasma chloride measurement (moles/volume) Serum or plasma chloride measurement (moles/volume) 108 98 - 107 11/03/2017 [facility] Serum or plasma creatinine measurement (mass/volume) Serum or plasma creatinine measurement (mass/volume) 0.69 0.57 - 1.11 11/03/2017 [facility] Serum or plasma potassium measurement (moles/volume) Serum or plasma potassium measurement (moles/volume) 4.0 3.5 - 5.1 11/03/2017 [facility] Serum or plasma sodium measurement (moles/volume) Serum or plasma sodium measurement (moles/volume) 140 136 - 145 11/03/2017 [facility] Serum or plasma urea nitrogen measurement (mass/volume) Serum or plasma urea nitrogen measurement (mass/volume) 10 7 - 26 11/03/2017 [facility] Serum or plasma urea nitrogen/creatinine mass ratio Serum or plasma urea nitrogen/creatinine mass ratio 14 6 - 25 11/03/2017 [facility] Red Cell Distribution Width 14.6 11.7 - 14.4 11/03/2017 [facility] IM GRANULOCYTES % 0.5 0.0 - 1.0 11/03/2017 [facility] Absolute Immature Granulocyte (auto 0.05 0 - 0.1 11/03/2017 [facility] Capillary blood glucose measurement by glucometer (mass/volume) Capillary blood glucose measurement by glucometer (mass/volume) 116 70 - 120 11/02/2017 [facility] Serum or plasma thyrotropin measurement by detection limit <=0.005 miu/l (units/volume) Serum or plasma thyrotropin measurement by detection limit <=0.005 miu/l (units/volume) 0.314 0.350 - 4.940 11/01/2017 [facility] Serum or plasma magnesium measurement (mass/volume) Serum or plasma magnesium measurement (mass/volume) 1.4 1.3 - 2.1 10/31/2017 [facility] Pathology Reports No Data Provided for This Section Diagnostic Reports No Data Provided for This Section Consultation Notes No Data Provided for This Section Discharge Summaries No Data Provided for This Section History and Physicals No Data Provided for This Section Vital Signs No Data Provided for This Section Encounters Location Location Details Encounter Type Encounter Number Reason For Visit Attending Provider ADM Date DC Date Status Source Registered [facility] [id number] NAVNEET VILLEDA MD 03/30/2017 [facility] Registered [facility] [id number] NAVNEET VILLEDA MD 05/19/2017 [facility] Discharged Inpatient [id number] MERCEDES CAO MD 10/30/2017 11/03/2017 [facility] Procedures Procedure Code Date Perfomer Comments Source Cystoscopy with retrograde pyelography [id number] 10/30/2017 [facility] IMPLANT NEUROELECTRODES [id number] 05/19/2017 [facility] REVISE/RMV PN/GASTR STIMUL [id number] 05/19/2017 [facility] ANALYZE NEUROSTIM COMPLEX [id number] 05/19/2017 [facility] Lead, neurostimulator [id number] 05/19/2017 [facility] X-ray of chest, two views [id number] 05/18/2017 [facility] Assessment and Plan No Data Provided for This Section Plan of Care Plan of Care Date Source Discharge Date 11/03/17 1:55pm Disposition HOME, SELF-CARE Instructions/Education Provided Infection Control Post Operative Pain Prescriptions See Medication Section Referrals NAVNEET VILLEDA MD (Urology) Order Date: 3 Weeks Entered Date: 11/03/2017 12:50pm Address: [address] [place] [id number] Additional Instructions/Education REGULAR DIET SCHEDULE FOLLOW UP APPOINTMENT WITH DR. VILLEDA IN 2-3 WEEKS. TEL. [phone] PROVIDE STAPLE REMOVER TO BRING TO FOLLOW UP APPOINTMENT IN 2 TO 3 WEEKS. MAY SHOWER. NO LIFTING MORE THAN 5 LBS. AMBULATE AT HOME. DO IS 10 X Q 1 HOUR WA AT HOME WELL. RX ON CHART 11/03/2017 [facility] Social History Social History Date Source Social History Problem Response Recorded Date/Time Onset Date Status Hx Psychiatric Problems No 10/30/2017 8:00pm Not Applicable Not Applicable Hx Eating Disorder No 10/30/2017 8:00pm Not Applicable Not Applicable Hx Substance Use Disorder No 10/30/2017 8:00pm Not Applicable Not Applicable Hx Depression No 10/30/2017 8:00pm Not Applicable Not Applicable Hx Alcohol Use No 10/30/2017 8:00pm Not Applicable Not Applicable Hx Substance Use Treatment No 10/30/2017 8:00pm Not Applicable Not Applicable Hx Physical Abuse No 10/30/2017 8:00pm Not Applicable Not Applicable 11/03/2017 [facility] Family History No Data Provided for This Section Advance Directives Order Name Results Value Date Source Advance Directives Advance Directives Directive Response Recorded Date/Time Does the patient have an advance directive? No 10/30/17 8:00pm If yes, is advance directive on file with [facility]? No 10/30/17 8:00pm If not on file with [facility] will patient provide a copy? No 10/30/17 8:00pm Do you have a Directive to Physician? No 10/24/17 10:07am Do you have a Medical Power of Refrigeration Insulator? No 10/24/17 10:07am Do you have an out of hospital Do Not Resuscitate Order? No 10/24/17 10:07am Do you have any special needs we should be aware of? No 10/24/17 10:07am Do you have a support person here with you today? Yes 10/24/17 10:07am Did patient receive Notice of Privacy Practices? Yes 10/24/17 10:07am Did patient receive patient rights and responsibilities? Yes 10/24/17 10:07am 11/03/2017 [facility] Functional Status No Data Provided for This Section
[2019-03-05 10:05] VITALS: BP 143/70
--- NOTE | 2019-04-09 05:51 | Operative Report ---
DATE OF PROCEDURE: 04/04/2019 SURGEON: Trell Tavares MD PREOEPERATIVE DIAGNOSIS: Refractory urge incontinence. POSTOPERATIVE DIAGNOSES: Refractory urge incontinence and dislodged InterStim lead. OPERATIONS PERFORMED: 1. Removal of dislodged InterStim lead and InterStim generator. 2. Implantation of new InterStim system with incision implantation of tined quadripolar lead electrodes into the left foramen S3. 3. Fluoroscopic guidance for needle placement. 4. Subcutaneous implantation of sacral nerve neurostimulator. 5. Electronic analysis and complex programming. ANESTHESIA: General. COMPLICATIONS: None. CLINICAL SUMMARY: Citlalli Smith is a 73-year-old woman who has an InterStim in place. She fell and this fall ended up dislodging her InterStim lead into the subcutaneous tissues in only the S3 foramen. This was noted on the radiographic studies. She is brought for replacement of her system. She is aware of the risks of bleeding, infection, injury to adjacent structures, need for additional procedures, failure of the procedure, need for revision. She elected to proceed. PROCEDURE IN DETAIL: Informed consent was verified. Agnieszka Smith was properly identified, taken to the operating room where anesthesia was uneventfully begun. She was then repositioned carefully and gently in the prone position with all pressure points carefully well padded. Her back and buttocks were prepared and draped in the usual sterile fashion. An incision was then made overlying the displaced lead. We dissected through the copious subcutaneous tissues till we reached the lead. We isolated the lead and dissected it down to the level of the S3 foramen. The incision was then made overlying the nerve stimulator. We incised down to the level of the pocket and the neurostimulator was explanted. We attempted to gently tug on the lead. As we did that, it immediately disconnected from the contact points and the lead was removed. The needle was then introduced into the left foramen S3, depth of needle was confirmed and adjusted fluoroscopically. Proper needle position was confirmed by direct observation of lifting of the perineum or bellowing and observation of plantar flexion of the great toe utilizing the external stimulator. The needle stylet was then removed and directional guidewire was then placed and confirmed fluoroscopically. The foramen needle was then removed. An incision was then made peripherally to the directional guide and a dilator and introducer sheath were then placed over the directional guidewire and directed into the foramen until the opaque marker of the dilator was seen midway through the sacrum. The dilator obturator was then unlocked and removed. The lead was then placed through the introducer sheath to the first white line. Position was checked fluoroscopically and also with stimulation as above. Under continuous fluoroscopy, the introducer sheath was retracted thus deploying the lead tines to the parasacral tissue. We then utilized the tunneling tool to take the lead and bring it to the incised pocket site. The pocket was slightly modified. We then infiltrated throughout all the incisions with Marcaine and lidocaine with epinephrine. Copious irrigation was performed. The lead was then cleansed of bodily fluids with sterile water. The lead was thoroughly dried and it was then inserted into the pulse generator header with the metal bands aligned and the blue tip clearly visible in the distal portion of the pulse generator header. The single set screw was tightened with a hex wrench. The pulse generator was then placed in subcutaneous pocket with the programming head was then placed over the implanted neurostimulator. Impedance check revealed that all parameters were within acceptable limits. Following this, the incisions were approximated in 2 layers utilizing absorbable sutures. Mastisol and Steri-Strips were applied as well as Bioclusive dressings to all incisions. The patient was then uneventfully reversed from anesthesia and taken to recovery room in stable condition. There were no complications of the procedure. The patient tolerated the procedure well. Sponge, needle, and instrument counts were of course correct x2 at the end of the case. Estimated blood loss was minimal. The patient was then transferred to the recovery room in satisfactory condition and once the patient was awake utilizing the clinician python programmer, the patient was programmed to the lead of optimum sensation given explicit instructions on utilizing the patient python programmer prior to discharge. Trell Tavares MD [place]/MODL /[id number] cc: MD Ibeth Maravilla
== END | disposition home or self-care (01) ==
LOC: OR 05:00
PROVIDERS: ATTEND Urology
DX: T85.121A Displacement of implanted electronic neurostimulator of peripheral nerve electrode (lead), initial encounter (principal); N39.41 Urge incontinence; I10 Essential (primary) hypertension; R00.1 Bradycardia, unspecified; E03.9 Hypothyroidism, unspecified; Z88.6 Allergy status to analgesic agent; Z01.810 Encounter for preprocedural cardiovascular examination; Z01.812 Encounter for preprocedural laboratory examination; Z01.818 Encounter for other preprocedural examination
CPT/HCPCS: 36415; 64581; 64590; 71046; 76000; 80048; 85025; 93005; 95972; C1778; C1894; J0696; J1100; J2001 ×2; J2370; J2405; J2704; J3010; J3490; L8679